=== PATIENT | female | born 1980 | race African-American/Black ===

== ENCOUNTER 2024-11-11 07:16 | Emergency (ER) | payer MEDICAID ==
[~2024-11-11] VITALS: Ht 167.6 cm; Wt 68.0 kg
[2024-11-11 07:29] VITALS: O2SAT 100
[2024-11-11] MEDS ORDERED: AMOX1TAB16 MT (07:56)
[2024-11-11] MEDS: KETOROLAC 30MG/ML VIAL IM ONE (08:17)
[2024-11-11] MEDS: HYDROCODONE/ACETAMINOPHEN 5/325MG TABLET PO ONE (08:17)
[2024-11-11 08:20] VITALS: BP 162/89; PULSE 70; RESP 20; TEMP 37.2; O2SAT 100
[2024-11-12] MEDS ORDERED: CLIN-116 MT (11:40)
== END 2024-11-11 08:53 | disposition home or self-care (01) ==
LOC: ER 07:16
DX: K04.7 Periapical abscess without sinus (principal); E11.9 Type 2 diabetes mellitus without complications; I10 Essential (primary) hypertension; Z79.899 Other long term (current) drug therapy; Z98.890 Other specified postprocedural states; Z90.710 Acquired absence of both cervix and uterus
CPT/HCPCS: 99283; 81025; 96372; J1885

== ENCOUNTER 2024-11-12 10:52 | Emergency (ER) | payer MEDICAID ==
[~2024-11-12] VITALS: Ht 157.5 cm; Wt 88.0 kg
[~2024-11-12 10:52] MED LIST: AMOX1TAB16 MT
[2024-11-12 11:05] VITALS: O2SAT 99
[2024-11-12 11:35] VITALS: BP 158/76; PULSE 85; RESP 14; TEMP 36.7; O2SAT 100
[2024-11-12] MEDS ORDERED: CLIN-116 MT (11:40)
== END 2024-11-12 11:55 | disposition home or self-care (01) ==
LOC: ER 10:52
DX: K04.7 Periapical abscess without sinus (principal); I10 Essential (primary) hypertension; Z90.710 Acquired absence of both cervix and uterus; Z79.899 Other long term (current) drug therapy
CPT/HCPCS: 99283